=== PATIENT | male | born 1980 | race Caucasian/White ===

== ENCOUNTER 2018-08-21 15:16 | Emergency (ER) | payer SELFPAY ==
[~2018-08-21] VITALS: Ht 167.6 cm; Wt 70.2 kg
[2018-08-21 15:32] VITALS: Ht 167.6 cm; Wt 70.2 kg
[2018-08-21] MEDS ORDERED: HYDROCODONE/APAP (5/325) TAB PO ONE (19:30)
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
[2018-08-21] MEDS ORDERED: NAPR-985 PO (22:05)
[2018-08-21 22:57] VITALS: BP 145/90; PULSE 80; RESP 17
== END 2018-08-21 22:58 | disposition home or self-care (01) ==
LOC: FTE 15:16
DX: S05.02XA Injury of conjunctiva and corneal abrasion without foreign body, left eye, initial encounter (principal); S60.221A Contusion of right hand, initial encounter; R51 Headache; Y04.2XXA Assault by strike against or bumped into by another person, initial encounter
CPT/HCPCS: 70450; 70480